=== PATIENT | female | born 1985 | race Caucasian/White ===

== ENCOUNTER 2017-03-30 00:43 | Emergency (ER) | payer OTHER ==
[2017-03-30] MEDS ORDERED: Lidocaine 1% (PF) 30 ML VIAL ONE (01:46)
[2017-03-30] MEDS ORDERED: Lidocaine 1% 20 ML MDV ONE (01:47)
[2017-03-30] MEDS ORDERED: traMADol HCl 50 MG TAB ONE (02:04)
[2017-03-30] MEDS ORDERED: Azithromycin 250 MG TAB ONE (02:04)
[2017-03-30] MEDS ORDERED: Adacel (T-DAP) 0.5 ML VIAL ONE (02:04)
[2017-03-30] MEDS ORDERED: Triple Antibiotic Oint 1 GM Packet ONE (02:58)
[2017-03-30] MEDS ORDERED: Sodium Chloride Irrig Solution 250 ML BOT ONE (06:46)
== END 2017-03-30 03:11 | disposition home or self-care (01) ==
LOC: MADERS 00:43
DX: S81.812A Laceration without foreign body, left lower leg, initial encounter (principal); G40.909 Epilepsy, unspecified, not intractable, without status epilepticus; W26.8XXA Contact with other sharp object(s), not elsewhere classified, initial encounter
CPT/HCPCS: 12002; 90471; 90715; J2001

== ENCOUNTER 2017-08-29 17:59 | Emergency (ER) | payer OTHER ==
[2017-08-29] MEDS ORDERED: Dexamethasone 4 MG TAB ONE (18:13)
[2017-08-29] MEDS ORDERED: Famotidine 20 MG TAB ONE (18:13)
== END 2017-08-29 19:12 | disposition home or self-care (01) ==
LOC: MADERS 17:59
DX: L50.9 Urticaria, unspecified (principal); G40.909 Epilepsy, unspecified, not intractable, without status epilepticus; Z79.899 Other long term (current) drug therapy
CPT/HCPCS: 99282; J8540